=== PATIENT | male | born 1955 | race Caucasian/White ===

== ENCOUNTER 2017-01-13 13:38 | Inpatient (IN) | payer MEDICAID ==
[~2017-01-13] VITALS: Ht 177.8 cm; Wt 93.4 kg
--- NOTE | 2017-01-13 13:42 | NUR ---
[id number] from home: etoh withdrawal. last drink last night. Gowned pt placed pt on monitor. Vss.
[2017-01-13] MEDS ORDERED: IV NS 0.9% 1,000 ML ONE ×3 (14:18→22:44)
[2017-01-13] MEDS ORDERED: IV SET PRIMARY PUMP SET 1 EA INFUS.SET MC ONE ×3 (14:18→22:44)
[2017-01-13 14:19] LABS: BASOPHILS % (AUTO) 0.2 % (0.0-2.0); EOSINOPHILS % (AUTO) 0.1 % (0.0-6.0); HEMATOCRIT 39 % (39-51); HEMOGLOBIN 13.2 g/dL (13.5-17.5); LYMPHOCYTES # (AUTO) 0.4 /CMM (0.8-4.8); LYMPHOCYTES % (AUTO) 4.1 % (20.0-44.0); MEAN CORPUSCULAR HEMOGLOBIN 36 PG (26.0-33.0); MEAN CORPUSCULAR HGB CONC 34 g/dl (31.0-36.0); MEAN CORPUSCULAR VOLUME 108 fL (80-96); MONOCYTES # (AUTO) 0.5 /CMM (0.1-1.30); MONOCYTES % (AUTO) 4.9 % (2.0-12.0); NEUTROPHILS % (AUTO) 90.7 % (43.0-81.0); PLATELET COUNT (AUTO) 203 /CMM (150-450); RDW COEFFICIENT OF VARIATION 15.2 (11.5-15.0); RED BLOOD CELL COUNT(AUTO) 3.65 MIL/uL (4.5-6.0); WHITE BLOOD COUNT (AUTO) 9.9 K/uL (4.3-11.0)
[2017-01-13] MEDS ORDERED: LORAZEPAM INJ 2 MG/ML VIAL ONE ×5 (14:19→22:46)
[2017-01-13] MEDS ORDERED: IV NS 0.9% 1,000 ML BAG IV ONE (14:30)
[2017-01-13] MEDS ORDERED: LORAZEPAM INJ 2 MG/ML VIAL IV ONE ×4 (14:30→19:00)
[2017-01-13 14:33] LABS: CREATININE 1.3 mg/dL (0.6-1.3)
[2017-01-13] MEDS ORDERED: TRAZ-147 PO (14:37)
[2017-01-13] MEDS ORDERED: CARV6.252 PO (14:37)
[2017-01-13] MEDS ORDERED: CLON0.1T PO (14:37)
[2017-01-13] MEDS ORDERED: POTA-88 PO (14:37)
[2017-01-13] MEDS ORDERED: MIRT15TA7 PO (14:37)
[2017-01-13] MEDS ORDERED: FURO40TA5 PO (14:37)
[2017-01-13] MEDS ORDERED: LOSA100T15 PO (14:37)
[2017-01-13] MEDS ORDERED: ESCI10TA PO (14:37)
[2017-01-13 14:38] LABS: ALBUMIN 3.8 g/dL (3.4-5.0); BILIRUBIN,DIRECT 0.7 mg/dL (0.0-0.2); TOTAL PROTEIN, SERUM 7.8 g/dL (6.4-8.2)
[2017-01-13 15:12] LABS: BAND % (MANUAL) 3 % (0.0-5.0); EOSINOPHILS % (MANUAL) 1 % (0-4); LYMPHOCYTES % (MANUAL) 7 % (16-48); MONOCYTES % (MANUAL) 2 % (0-11.0); NEUTROPHILS % (MANUAL) 87 (42-76)
--- NOTE | 2017-01-13 15:30 | NUR ---
lac #18 iv access. blood sample collected sent to lab
[2017-01-13] MEDS ORDERED: CHLORDIAZEPOXIDE HCL 25 MG CAPSULE ONE ×2 (16:14→22:31)
[2017-01-13] MEDS ORDERED: ONDANSETRON HCL/PF 4 MG/2 ML VIAL ONE ×2 (16:14→22:46)
[2017-01-13] MEDS ORDERED: ONDANSETRON HCL/PF 4 MG/2 ML VIAL IV ONE (16:30)
[2017-01-13] MEDS ORDERED: CHLORDIAZEPOXIDE HCL 25 MG CAPSULE PO ONE (16:30)
[2017-01-13] MEDS ORDERED: METOCLOPRAMIDE HCL 10 MG/2 ML VIAL ONE (17:52)
[2017-01-13] MEDS ORDERED: FOLIC ACID 1 MG TABLET ONE ×2 (17:53→17:54)
[2017-01-13] MEDS ORDERED: THIAMINE HCL 100 MG TABLET ONE (17:53)
[2017-01-13] MEDS ORDERED: THIAMINE HCL 100 MG TABLET PO ONE (18:00)
[2017-01-13] MEDS ORDERED: FOLIC ACID 1 MG TABLET PO ONE (18:00)
[2017-01-13] MEDS ORDERED: METOCLOPRAMIDE HCL 10 MG/2 ML VIAL IV ONE (18:00)
[2017-01-13] MEDS ORDERED: hydrALAZINE HCL IV 20 MG VIAL IV ONE (19:00)
[2017-01-13] MEDS ORDERED: AMLODIPINE BESYLATE 5 MG TABLET ONE (19:00)
[2017-01-13] MEDS ORDERED: AMLODIPINE BESYLATE 5 MG TABLET PO ONE (19:00)
[2017-01-13] MEDS ORDERED: hydrALAZINE HCL IV 20 MG VIAL ONE (19:00)
--- NOTE | 2017-01-13 19:10 | NUR ---
GAVE REPORT TO ROMÁN FOR JASSON
--- NOTE | 2017-01-13 19:12 | NUR ---
CRISTEL HERNANDEZ, RAI PACHECO PASTORAL COUNSELOR
--- NOTE | 2017-01-13 19:30 | NUR ---
PT APPEARS TO BE RESTING COMFORTABLY WITH NO S/S OF PAIN OR DISTRESS.
--- NOTE | 2017-01-13 20:40 | NUR ---
CLEANED PT. DIARRHEA X1.
--- NOTE | 2017-01-13 21:02 | NUR ---
REPORT GIVEN TO ED, RN
[2017-01-13 21:30] VITALS: BP 151/87
[2017-01-13 22:01] VITALS: BP 170/103
[2017-01-13] MEDS ORDERED: POTASSIUM CL. PREMIX PERIPHER. 200 ML ONE (22:28)
[2017-01-13 22:30] VITALS: BP 154/91
[2017-01-13] MEDS ORDERED: MAG HYDROX/AL HYDROX/SIMETH 30 ML UDC PO PRN (22:30)
[2017-01-13] MEDS ORDERED: MAGNESIUM HYDROXIDE 30 ML UDC PO PRN (22:30)
[2017-01-13] MEDS ORDERED: DEXTROSE 50%-WATER 50 ML DISP.SYRIN IV PRN ×2 (22:30)
[2017-01-13] MEDS ORDERED: ACETAMINOPHEN 325 MG TABLET PO PRN (22:30)
[2017-01-13] MEDS ORDERED: ONDANSETRON HCL/PF 4 MG/2 ML VIAL IVP PRN (22:30)
[2017-01-13] MEDS ORDERED: Z GUARD REMEDY 2 OZ OINT TP PRN (22:30)
[2017-01-13] MEDS ORDERED: HYDROCODONE/APAP 5/325MG 1 EACH TABLET PO PRN (22:30)
[2017-01-13] MEDS ORDERED: INSULIN REGULAR, HUMAN 100 UNIT/ML 3 ML VIAL SQ PRN (22:30)
[2017-01-13] MEDS ORDERED: hydrALAZINE HCL IV 20 MG VIAL IV PRN (22:30)
[2017-01-13] MEDS: POTASSIUM CL. PREMIX PERIPHER. 50 ML IV SCH ×2 (22:33→23:27)
[2017-01-13] MEDS: CHLORDIAZEPOXIDE HCL 25 MG CAPSULE PO SCH (22:35)
[2017-01-13] MEDS: LORAZEPAM INJ 2 MG/ML VIAL IV PRN (22:50)
[2017-01-13] MEDS: IV NS 0.9% 1,000 ML IV PRN (22:52)
[2017-01-13 23:00] VITALS: BP 143/95
[2017-01-13] MEDS ORDERED: ZOLPIDEM TARTRATE 5 MG TABLET ONE (23:21)
[2017-01-13] MEDS: ZOLPIDEM TARTRATE 5 MG TABLET PO PRN (23:26)
[2017-01-13 23:34] LABS: PHOSPHORUS 1.7 mg/dL (2.5-4.9)
[2017-01-13] MEDS ORDERED: ENOXAPARIN SODIUM 40 MG/0.4 ML DISP.SYRIN SQ ONE (23:52)
[2017-01-13] MEDS: ENOXAPARIN SODIUM 40 MG/0.4 ML DISP.SYRIN SQ SCH (23:57)
[2017-01-14] VITALS (23 sets, daily range): BP systolic 120–163; BP diastolic 80–109
[2017-01-14] MEDS: BLOOD SUGAR DIAGNOSTIC 1 EACH STRIP IN SCH ×5 (00:07→11:12)
[2017-01-14] MEDS ORDERED: Magnesium 1GM/D5W 100ML PREMIX 400 ML IV ONE (00:09)
[2017-01-14] MEDS ORDERED: IV SET PRIMARY PUMP SET 1 EA INFUS.SET MC ONE (00:09)
[2017-01-14] MEDS: Magnesium 1GM/D5W 100ML PREMIX 100 ML IV SCH ×4 (00:13→03:01)
[2017-01-14] MEDS: POTASSIUM CL. PREMIX PERIPHER. 50 ML IV SCH ×6 (00:33→09:55)
[2017-01-14] MEDS ORDERED: MIRTAZAPINE 15 MG TABLET PO PRN (01:00)
[2017-01-14] MEDS ORDERED: LORAZEPAM INJ 2 MG/ML VIAL ONE (01:01)
[2017-01-14] MEDS: LORAZEPAM INJ 2 MG/ML VIAL IV PRN ×5 (01:05→21:11)
[2017-01-14] MEDS ORDERED: FUROSEMIDE 40 MG/4 ML VIAL IV SCH (03:00)
[2017-01-14] MEDS ORDERED: FUROSEMIDE 40 MG/4 ML VIAL IV ONE (03:00)
[2017-01-14] MEDS ORDERED: FUROSEMIDE 40 MG/4 ML VIAL ONE (03:11)
[2017-01-14 05:12] LABS: BASOPHILS % (AUTO) 0.2 % (0.0-2.0); EOSINOPHILS % (AUTO) 0.1 % (0.0-6.0); HEMATOCRIT 33 % (39-51); HEMOGLOBIN 11.7 g/dL (13.5-17.5); LYMPHOCYTES # (AUTO) 0.7 /CMM (0.8-4.8); LYMPHOCYTES % (AUTO) 12.8 % (20.0-44.0); MEAN CORPUSCULAR HEMOGLOBIN 37 PG (26.0-33.0); MEAN CORPUSCULAR HGB CONC 35 g/dl (31.0-36.0); MEAN CORPUSCULAR VOLUME 107 fL (80-96); MONOCYTES # (AUTO) 0.2 /CMM (0.1-1.30); MONOCYTES % (AUTO) 4.2 % (2.0-12.0); NEUTROPHILS # (AUTO) 4.3 /CMM (1.8-8.9); NEUTROPHILS % (AUTO) 82.7 % (43.0-81.0); PLATELET COUNT (AUTO) 109 /CMM (150-450); RDW COEFFICIENT OF VARIATION 15.8 (11.5-15.0); RED BLOOD CELL COUNT(AUTO) 3.13 MIL/uL (4.5-6.0); WHITE BLOOD COUNT (AUTO) 5.2 K/uL (4.3-11.0)
[2017-01-14 05:44] LABS: CALCIUM, SERUM 7.3 mg/dL (8.5-10.1); CREATININE 0.8 mg/dL (0.6-1.3); MAGNESIUM 2.4 mg/dL (1.8-2.4); PHOSPHORUS 1.7 mg/dL (2.5-4.9)
[2017-01-14 05:47] LABS: POTASSIUM 2.8 mmol/L (3.5-5.1)
[2017-01-14 06:11] LABS: BAND % (MANUAL) 4 % (0.0-5.0); EOSINOPHILS % (MANUAL) 1 % (0-4); LYMPHOCYTES % (MANUAL) 17 % (16-48); MONOCYTES % (MANUAL) 5 % (0-11.0); NEUTROPHILS % (MANUAL) 73 (42-76)
[2017-01-14] MEDS ORDERED: POTASSIUM CL. PREMIX PERIPHER. 50 ML ONE (06:14)
--- NOTE | 2017-01-14 07:05 | NUR ---
COMPUTER FORWARDING SYSTEM MARKUP CLERK- RECEIVED PT A/O X3. ON 2L NC, RESPIRATIONS EVEN AND UNLABORED, NO SOB OR DISTRESS PRESENT. BEDSIDE MONITOR REVEALS SINUS TACHYCARDIA, HR= 117. TWO IVS PRESENT: 1) LEFT HAND 20G RUNNING NS @ 75 ML/HR AND 2) LAC 18G HL. PT DENIES PAIN OR DISCOMFORT. PT CONTINENT OF URINE & STOOL, URINAL AT BEDSIDE. INFORMED PT STOOL IS NEEDED FOR SAMPLE. SAFETY MEASURES TAKEN: BED LOCKED AND IN LOW POSITION, SIDE RAILS UP X2, BED ALARM ON AND CALL LIGHT WITHIN REACH, WILL CONTINUE TO MONITOR.
--- NOTE | 2017-01-14 07:17 | NUR ---
PHLEBOTOMIST MEDICAL LAB ASSISTANT PT WAS ADMITTED FROM ER WITH DIAGNOSIS ALCOHOL WITHDRAWAL. PT IS AWAKE, ALERT, ORIENTED X 3. MOVES ALL EXTREMITIES, LEGS ARE WEAK. TACHYCARDIC, HYPERTENSIVE, ANXIOUS. AFEBRILE. ABNORMAL LAB RESULTS: K-3, MAG-1. PT WAS GIVEN KCL 40 MEQ IV, AND MAGNESIUM SULFATE 4 G. IV. SLEPT WELL AFTER TAKING AMBIEN 5 MG PO. ATIVAN 2 MG IV ALSO WAS GIVEN. IN A.M. K LEVEL IS STILL LOW-2.8 THERE IS ORDER TO GIVE ANOTHER KCL 40 MEQ IV. VOIDS SUFFICIENT AMT. OF CLEAR DEX URINE. IV SITES ARE OK. MEDICATED ORDERED. REPORT GIVEN TO ESPERANZA DAY SHIFT RN.
[2017-01-14] MEDS: PANTOPRAZOLE 40 MG TABLET.DR PO SCH ×2 (07:30→09:11)
[2017-01-14] MEDS: CLONIDINE HCL 0.1 MG TABLET PO SCH ×2 (09:08→17:16)
[2017-01-14] MEDS: CARVEDILOL 6.25 MG TABLET PO SCH ×2 (09:08→17:16)
[2017-01-14] MEDS: CHLORDIAZEPOXIDE HCL 25 MG CAPSULE PO SCH ×2 (09:55→17:16)
[2017-01-14] MEDS: FOLIC ACID 1 MG TABLET PO SCH (09:56)
[2017-01-14] MEDS: ESCITALOPRAM OXALATE (10 MG) 10 MG TABLET PO SCH (10:19)
[2017-01-14] MEDS: THIAMINE HCL 100 MG TABLET PO SCH (10:20)
[2017-01-14] MEDS: IV NS 0.9% 1,000 ML IV PRN (11:09)
[2017-01-14 12:18] LABS: CALCIUM, SERUM 7.2 mg/dL (8.5-10.1); POTASSIUM 3.3 mmol/L (3.5-5.1)
--- NOTE | 2017-01-14 12:30 | NUR ---
PAINTLESS DENT REPAIR TECHNICIANAisha LOVING, CHEESE MAKER AT BEDSIDE. UPDATED ON PT'S CONDITION. OBTAINED ORDERS FOR THE FOLLOWIN) CHANGE DIET TO FULL LIQUID SINCE PT C/O MILD NAUSEA AND NOT WANTING TO EAT SOLID FOODS AT THIS TIME, 2) OK TO RESUME PT ON COZAAR 100 MG DAILY, 3) DVT PUMPS OK FOR PT TO WEAR AT NIGHTTIME ONLY, 4) WILL REPLACE POTASSIUM & PHOS LEVELS. ORDERS PLACED. WILL CONTINUE TO MONITOR.
[2017-01-14] MEDS: LOSARTAN POTASSIUM 50 MG TABLET PO SCH (13:20)
[2017-01-14] MEDS: K PHOS NEUTRAL 250 MG TABLET PO SCH ×2 (13:20→21:11)
[2017-01-14] MEDS ORDERED: POTASSIUM CHLORIDE 20 MEQ POWDER PACKET PO ONE (13:30)
--- NOTE | 2017-01-14 17:30 | NUR ---
MOLD PREPARER- PT TRANSFERRED TO TELE ROOM 323-1. REPORT GIVEN TO GUSTABO SHANKS. ALL BELONGINGS SENT WITH PT. RN & PT AWARE.
--- NOTE | 2017-01-14 17:35 | NUR ---
TUB CHUCKERBLACK TOPPER FROM ICU NOTES RECEIVED PT FROM ICU.PT IS ALERT AND ORIENTED X4.VERBALLY RESPONSIVE.DENIES ANY PAIN OR DISTRESS.RESPIRATIONS NON LABORED IN ROOM AIR.WITH (2)IV H/L INTACT TO LEFT HAND AND LEFT FOREARM-WITH ONGOING IVF OF NS AT 75 ML/HR INFUSING WELL ON THE LT FOREARM.DENIES PAIN BUT WANTS ATIVAN IV PRN FOR HIS TREMORS AND ANXIETY.ATIVAN 1 MG IV GIVEN WITH EFFECTIVE RESULT.WITH BRUISES PRESENT ON RT SHOULDER,LT THIGH AND LT ANKLE.CALL LIGHT PLACED WITHIN REACH.
--- NOTE | 2017-01-14 19:56 | NUR ---
MS/RN OPENING NOTES PATIENT IN BED, AWAKE. NO S/S OF SOB OR DISTRESS OBSERVEDD. ON 2L OXYGEN VIA NC.CALL LIGHTS WITHIN REACH. FLUIDS AT BEDSIDE. VERBALIZED NEEDS AND REQUESTING FOR SOME ATIVAN .B/P CHECK 123/87. WILL CONTINUE TO PROVIDE CARE. AND INFORMED TO USE CALL LIGHT AND ASK FOR HELP FOR ASSISTANCE.
[2017-01-14] MEDS: ATORVASTATIN 40 MG TABLET PO SCH (21:11)
[2017-01-14] MEDS: ENOXAPARIN SODIUM 40 MG/0.4 ML DISP.SYRIN SQ SCH (23:10)
--- NOTE | 2017-01-14 23:16 | NUR ---
Tele/rn notes md contacted to inform latest platelet level of 109(L) and ordered to continue order for lovenox 40mg sq and monitor for any bleeding.
[2017-01-15] VITALS: BP 129/80
[2017-01-15] MEDS: LORAZEPAM INJ 2 MG/ML VIAL IV PRN ×8 (00:22→22:53)
[2017-01-15] MEDS ORDERED: IV SET PRIMARY PUMP SET 1 EA INFUS.SET MC ONE (02:00)
[2017-01-15] MEDS: IV NS 0.9% 1,000 ML IV PRN ×2 (02:09→18:00)
--- NOTE | 2017-01-15 02:29 | NUR ---
tele/rn notes md was informed regarding diarrhea since admission no new order but iv fluids to continue and monitoring for any electrolyte imbalance.
[2017-01-15 04:00] VITALS: BP_SYST 121; BP_SYST 129; BP_DIAS 75; BP_DIAS 80
--- NOTE | 2017-01-15 06:36 | NUR ---
tele/rn notes patient in bed, awake, alertx3. able to verbalize needs. noted inability to relax and requesting for prn ativan, provided education for deep breathing exercise to calm dowm iv on left hand removed due to leaking. monitoring for any bleeding on site. will endorse to am rn regaring continuity of care. md made aware regarding diarrhea and no order except iv hydration abd monitoring for any s/s of complication.
[2017-01-15 07:27] LABS: BASOPHILS % (AUTO) 0.4 % (0.0-2.0); EOSINOPHILS # (AUTO) 0.1 /CMM (0.0-0.7); EOSINOPHILS % (AUTO) 1.5 % (0.0-6.0); HEMATOCRIT 31 % (39-51); HEMOGLOBIN 10.9 g/dL (13.5-17.5); LYMPHOCYTES # (AUTO) 0.8 /CMM (0.8-4.8); LYMPHOCYTES % (AUTO) 18.9 % (20.0-44.0); MEAN CORPUSCULAR HEMOGLOBIN 38 PG (26.0-33.0); MEAN CORPUSCULAR HGB CONC 35 g/dl (31.0-36.0); MEAN CORPUSCULAR VOLUME 109 fL (80-96); MONOCYTES # (AUTO) 0.2 /CMM (0.1-1.30); MONOCYTES % (AUTO) 5.9 % (2.0-12.0); NEUTROPHILS % (AUTO) 73.3 % (43.0-81.0); PLATELET COUNT (AUTO) 78 /CMM (150-450); RDW COEFFICIENT OF VARIATION 15.4 (11.5-15.0); RED BLOOD CELL COUNT(AUTO) 2.86 MIL/uL (4.5-6.0); WHITE BLOOD COUNT (AUTO) 4.1 K/uL (4.3-11.0)
--- NOTE | 2017-01-15 07:36 | NUR ---
TELE/RN NOTES RECEIVED PATIENT RESTING IN BED, SLEEPING COMFORTABLY, AROUSED BY VERBAL STIMULI. NO S/S OF DISTRESS/DISCOMFORT NOTED. PER TELE MONITOR SINUS TACH 101. IV TO LEFT FA INFUSING NS AT 75CC/HR. SAFETY MEASURES RENDERED, CALL LIGHT PLACED WITHIN REACH. WILL CONTINUE TO MONITOR
[2017-01-15 07:54] LABS: CALCIUM, SERUM 7.3 mg/dL (8.5-10.1); CREATININE 0.9 mg/dL (0.6-1.3); POTASSIUM 2.9 mmol/L (3.5-5.1)
[2017-01-15 08:00] VITALS: BP 125/70
[2017-01-15 08:28] LABS: EOSINOPHILS % (MANUAL) 1 % (0-4); LYMPHOCYTES % (MANUAL) 15 % (16-48); MONOCYTES % (MANUAL) 7 % (0-11.0); NEUTROPHILS % (MANUAL) 77 (42-76)
[2017-01-15] MEDS ORDERED: POTASSIUM CHLORIDE 20 MEQ POWDER PACKET PO ONE (10:00)
[2017-01-15] MEDS: CHLORDIAZEPOXIDE HCL 25 MG CAPSULE PO SCH ×2 (10:02→16:12)
[2017-01-15] MEDS: FOLIC ACID 1 MG TABLET PO SCH (10:02)
[2017-01-15] MEDS: CLONIDINE HCL 0.1 MG TABLET PO SCH ×2 (10:02→16:12)
[2017-01-15] MEDS: CARVEDILOL 6.25 MG TABLET PO SCH ×2 (10:03→16:12)
[2017-01-15] MEDS: THIAMINE HCL 100 MG TABLET PO SCH (10:03)
[2017-01-15] MEDS: ESCITALOPRAM OXALATE (10 MG) 10 MG TABLET PO SCH (10:03)
[2017-01-15] MEDS: LOSARTAN POTASSIUM 50 MG TABLET PO SCH (10:03)
[2017-01-15] MEDS: PANTOPRAZOLE 40 MG TABLET.DR PO SCH (10:05)
--- NOTE | 2017-01-15 11:50 | NUR ---
MS/RN NOTES ALCOHOL WITHDRAW SYMPTOMS NOTED, PATIENT HAS HAND UNCONTROLLED HAND TREMORS, VERBLAIZES FEEING ANXIOUS AND AGITATED. ADMINISTERED ATIVAN 2 MG IV NEEDED FOR NOTED SYMPTOMS.
--- NOTE | 2017-01-15 12:13 | NUR ---
MS/RN JUAN PATIENT HAS BEEN C/O SEVERE DIARRHEA, MORNING SHIFT X1 DIARRHEA NOTED. CALLED DR SOLANO FOR ORDERS.
--- NOTE | 2017-01-15 14:55 | NUR ---
MS/RN NOTES PATIENT RESTING IN BED, AT BEDSIDE. NO SIGNIFICANT CHANGES NOTED. WITHDRAWAL SYMPTOMS MANAGED WITH ATIVAN, ALCOHOL INDUCED DIARRHEA NOTED. PT EVAL FOR BLE WEAKNESS, POSSIBLE DISCHARGE FOR AM.
[2017-01-15 16:00] VITALS: BP 127/93
[2017-01-15 16:12] VITALS: BP 127/93
--- NOTE | 2017-01-15 18:49 | NUR ---
MS/RN NOTES PATIENT RESTING IN BED COMFORTABLY, STABLE, NO SIGNIFICANT CHANGES NOTED. ALL DUE MEDICATIONS GIVEN, ALL NEEDS MET AND ATTENDED. PATIENT KEPT CLEAN AND COMFORTABLE. ALCOHOL WITHDRAWALS MANAGED WITH ATIVAN 2 MG IV PUSH EVERY 2 HOURS. SAFETY MEASURES RENDERED, CALL LIGHT WITHIN REACH. WILL ENDORSE CARE TO RISK ANALYST FOR JASSON.
[2017-01-15 20:00] VITALS: BP 131/89
[2017-01-15] MEDS: ATORVASTATIN 40 MG TABLET PO SCH (21:13)
--- NOTE | 2017-01-15 21:44 | NUR ---
MSN NOTES RECEIVED PT IN ROOM. AWAKE. COOPERATIVE WITH STAFF. RESPIRATION EVEN AND UNLABORED. NO SOB. NO ACUTE DISTRESS NOTED. NO COMPLAIN OF PAIN/DISCOMFORT AT THIS TIME. ALL NEEDS ATTENDED AND ANTICIPATED. BED IN LOW AND LOCKED POSITION. SIDERAILS UP X2. CALL LIGHT WITHIN REACH. WILL CONTINUE TO MONITOR FOR SAFETY.
[2017-01-15] MEDS: ZOLPIDEM TARTRATE 5 MG TABLET PO PRN (22:47)
[2017-01-15] MEDS: ENOXAPARIN SODIUM 40 MG/0.4 ML DISP.SYRIN SQ SCH (23:53)
[2017-01-16] MEDS: LORAZEPAM INJ 2 MG/ML VIAL IV PRN ×2 (04:23→08:45)
--- NOTE | 2017-01-16 06:21 | NUR ---
MSN NOTES PT IN ROOM. AWAKE. RESPIRATION EVEN AND UNLABORED. NO SOB. NO ACUTE DISTRESS NOTED. NO COMPLAIN OF PAIN/DISCOMFORT AT THIS TIME. ALL NEEDS ATTENDED AND ANTICIPATED. BED IN LOW AND LOCKED POSITION. SIDERAILS UP X2. CALL LIGHT WITHIN REACH. WILL ENDORSE TO NEXT SHIFT NURSE FOR CONTINUITY OF CARE.
[2017-01-16 07:33] LABS: CALCIUM, SERUM 7.3 mg/dL (8.5-10.1); CREATININE 0.9 mg/dL (0.6-1.3); POTASSIUM 3.1 mmol/L (3.5-5.1)
[2017-01-16 08:00] VITALS: BP 123/107
--- NOTE | 2017-01-16 08:00 | NUR ---
PT RESTING IN ROOM, FEMALE VISTOR PRESENT. IV DRESSING AND SITE CLEANED...PT IN NO DISTRESS AT THIS TIME...AM CARE IN PROCESS
[2017-01-16] MEDS: ESCITALOPRAM OXALATE (10 MG) 10 MG TABLET PO SCH (08:45)
[2017-01-16] MEDS: LOSARTAN POTASSIUM 50 MG TABLET PO SCH (08:46)
[2017-01-16 08:47] VITALS: BP 146/107
[2017-01-16] MEDS: CLONIDINE HCL 0.1 MG TABLET PO SCH (08:47)
[2017-01-16] MEDS: PANTOPRAZOLE 40 MG TABLET.DR PO SCH (08:47)
[2017-01-16] MEDS: FOLIC ACID 1 MG TABLET PO SCH (08:47)
[2017-01-16] MEDS: CARVEDILOL 6.25 MG TABLET PO SCH (08:47)
[2017-01-16] MEDS: THIAMINE HCL 100 MG TABLET PO SCH (08:48)
[2017-01-16] MEDS: CHLORDIAZEPOXIDE HCL 25 MG CAPSULE PO SCH (08:48)
[2017-01-16] MEDS ORDERED: POTASSIUM CHLORIDE 20 MEQ POWDER PACKET PO ONE (11:00)
--- NOTE | 2017-01-16 11:30 | NUR ---
PENDING D/C TO HOME...PT APPEARS IN STABLE CONDITION
--- NOTE | 2017-01-16 14:03 | NUR ---
IV D/C'D...NO HEMATOMA NOTED...D/C'D PER W/C WITH FRIEND TO HOME IN STABLE CONDITION .D/C INSTRUCTIONS RCVD AND UNDERSTOOD...NO RX GIVEN...PT ENCOURAGED TO CALL MD OFFICE OR HOSPITAL WITH QUESTIONS OR GO TO ER IN CASE OF EMERGENCY
== END 2017-01-16 14:05 | disposition home or self-care (01) | DRG 194 ==
LOC: ER 13:40 → ICU 20:25 → TELE 01-14 17:25 → MED 01-15 09:58
PROVIDERS: ADMIT Nurse Practitioner Acute Care; ATTEND Nurse Practitioner Acute Care
DX: I11.0 Hypertensive heart disease with heart failure (principal); E86.0 Dehydration; E46 Unspecified protein-calorie malnutrition; D69.59 Other secondary thrombocytopenia; E83.42 Hypomagnesemia; E83.39 Other disorders of phosphorus metabolism; D52.9 Folate deficiency anemia, unspecified; F10.239 Alcohol dependence with withdrawal, unspecified; I50.23 Acute on chronic systolic (congestive) heart failure; F32.9 Major depressive disorder, single episode, unspecified; E87.6 Hypokalemia; F41.9 Anxiety disorder, unspecified; E78.5 Hyperlipidemia, unspecified; R00.0 Tachycardia, unspecified; Z95.0 Presence of cardiac pacemaker; R74.0 Nonspecific elevation of levels of transaminase and lactic acid dehydrogenase [LDH]; Z68.29 Body mass index [BMI] 29.0-29.9, adult; D63.8 Anemia in other chronic diseases classified elsewhere
CPT/HCPCS: 36415; 71010-TC; 80048-TC; 80061-TC; 80076-TC; 82746; 82962-TC; 83690-TC; 83735-TC; 84100-TC; 84484-TC; 85025-TC; 87081-TC; 93307-TC; A4606; G0480; J0360; J1650; J1815; J1940; J2060; J2405; J2765; J3475; J3480; J7030; Z7610

== ENCOUNTER 2017-01-31 11:33 | Inpatient (IN) | payer MEDICAID ==
[~2017-01-31] VITALS: Ht 177.8 cm; Wt 95.7 kg
[~2017-01-31 11:33] MED LIST: CARV6.252 PO; CLON0.1T PO; ESCI10TA PO; FURO40TA5 PO; LOSA100T15 PO; MIRT15TA7 PO; POTA-88 PO; TRAZ-147 PO
[2017-01-31] MEDS ORDERED: IV NS 0.9% 1,000 ML BAG IV ONE ×3 (12:00→14:00)
[2017-01-31] MEDS ORDERED: IV SET PRIMARY 1 EA INFUS.SET MC ONE ×3 (12:02→13:47)
[2017-01-31] MEDS ORDERED: IV NS 0.9% 1,000 ML ONE ×3 (12:02→13:47)
[2017-01-31 12:22] LABS: HEMATOCRIT 39 % (39-51); HEMOGLOBIN 13.8 g/dL (13.5-17.5); LYMPHOCYTES # (AUTO) 0.2 /CMM (0.8-4.8); LYMPHOCYTES % (AUTO) 2.2 % (20.0-44.0); MEAN CORPUSCULAR HEMOGLOBIN 38 PG (26.0-33.0); MEAN CORPUSCULAR HGB CONC 35 g/dl (31.0-36.0); MEAN CORPUSCULAR VOLUME 107 fL (80-96); MONOCYTES # (AUTO) 0.3 /CMM (0.1-1.30); MONOCYTES % (AUTO) 3.7 % (2.0-12.0); NEUTROPHILS # (AUTO) 8.5 /CMM (1.8-8.9); NEUTROPHILS % (AUTO) 94.1 % (43.0-81.0); PLATELET COUNT (AUTO) 142 /CMM (150-450); RDW COEFFICIENT OF VARIATION 14.2 (11.5-15.0); RED BLOOD CELL COUNT(AUTO) 3.67 MIL/uL (4.5-6.0)
[2017-01-31 12:44] LABS: BAND % (MANUAL) 5 % (0.0-5.0); LYMPHOCYTES % (MANUAL) 3 % (16-48); MONOCYTES % (MANUAL) 4 % (0-11.0); NEUTROPHILS % (MANUAL) 88 (42-76)
[2017-01-31] MEDS ORDERED: CARV3.122 PO (12:44)
[2017-01-31 12:57] LABS: ALANINE AMINOTRANSFERASE 126 U/L (12-78); ALBUMIN 3.3 g/dL (3.4-5.0); ALKALINE PHOSPHATASE 194 U/L (46-116); ASPARTATE AMINOTRANSFERASE 261 U/L (15-37); BILIRUBIN,DIRECT 4.7 mg/dL (0.0-0.2); BILIRUBIN,TOTAL 6.4 mg/dL (0.2-1.0); CALCIUM, SERUM 7.8 mg/dL (8.5-10.1); CARBON DIOXIDE 24 mmol/L (21-32); CHLORIDE 82 mmol/L (98-107); CREATININE 5.1 mg/dL (0.6-1.3); GLUCOSE 193 mg/dL (74-106); SODIUM SERUM 125 mmol/L (136-145); TOTAL PROTEIN, SERUM 7.5 g/dL (6.4-8.2); UREA NITROGEN, BLOOD 17 mg/dL (7-18)
[2017-01-31 12:59] LABS: ACETAMINOPHEN 0 ug/ml (10-30); ALCOHOL, BLOOD < 3 mg/dL (0-0)
[2017-01-31 13:00] LABS: POTASSIUM 2.7 mmol/L (3.5-5.1)
[2017-01-31] MEDS ORDERED: POTASSIUM CHLORIDE 20 MEQ TAB.PRT.SR PO ONE ×3 (13:30→20:15)
[2017-01-31] MEDS ORDERED: LORAZEPAM INJ 2 MG/ML VIAL IV ONE (13:30)
[2017-01-31] MEDS ORDERED: LORAZEPAM INJ 2 MG/ML VIAL ONE (13:48)
[2017-01-31 14:10] VITALS: BP 130/78
[2017-01-31] MEDS ORDERED: ACETAMINOPHEN 325 MG TABLET PO PRN (14:30)
[2017-01-31] MEDS ORDERED: IV D5/ 0.9% NACL 1,000 ML IV PRN (14:30)
[2017-01-31] MEDS ORDERED: Z GUARD REMEDY 2 OZ OINT TP PRN (14:30)
[2017-01-31] MEDS ORDERED: ONDANSETRON HCL/PF 4 MG/2 ML VIAL IVP PRN (14:30)
[2017-01-31] MEDS: CARVEDILOL 3.125 MG TABLET PO SCH (14:36)
[2017-01-31] MEDS ORDERED: IV SET PRIMARY PUMP SET 1 EA INFUS.SET MC ONE (15:47)
[2017-01-31] MEDS ORDERED: SECONDARY IV SET 1 EA INFUS.SET MC ONE (15:48)
[2017-01-31 16:00] VITALS: BP 128/71
[2017-01-31] MEDS: Thiamine 100 MG in IV D5W 50 ML IV SCH (16:09)
[2017-01-31] MEDS: CLONIDINE HCL 0.1 MG TABLET PO SCH (16:36)
[2017-01-31] MEDS: Folic acid 1 MG in IV D5W 50 ML IV SCH (16:36)
[2017-01-31] MEDS: LORAZEPAM INJ 2 MG/ML VIAL IV PRN ×2 (17:46→22:14)
[2017-01-31 18:14] LABS: BASOPHILS % (AUTO) 0.2 % (0.0-2.0); HEMATOCRIT 31 % (39-51); HEMOGLOBIN 10.8 g/dL (13.5-17.5); LYMPHOCYTES # (AUTO) 0.3 /CMM (0.8-4.8); LYMPHOCYTES % (AUTO) 5.8 % (20.0-44.0); MEAN CORPUSCULAR HEMOGLOBIN 37 PG (26.0-33.0); MEAN CORPUSCULAR HGB CONC 35 g/dl (31.0-36.0); MEAN CORPUSCULAR VOLUME 106 fL (80-96); MONOCYTES # (AUTO) 0.3 /CMM (0.1-1.30); MONOCYTES % (AUTO) 5.7 % (2.0-12.0); NEUTROPHILS # (AUTO) 3.9 /CMM (1.8-8.9); NEUTROPHILS % (AUTO) 88.3 % (43.0-81.0); PLATELET COUNT (AUTO) 87 /CMM (150-450); RDW COEFFICIENT OF VARIATION 14.4 (11.5-15.0); RED BLOOD CELL COUNT(AUTO) 2.89 MIL/uL (4.5-6.0); WHITE BLOOD COUNT (AUTO) 4.5 K/uL (4.3-11.0)
[2017-01-31 18:29] LABS: ALBUMIN 2.5 g/dL (3.4-5.0); BILIRUBIN,TOTAL 5.2 mg/dL (0.2-1.0); CALCIUM, SERUM 6.7 mg/dL (8.5-10.1); TOTAL PROTEIN, SERUM 5.8 g/dL (6.4-8.2)
[2017-01-31 19:07] LABS: BAND % (MANUAL) 23 % (0.0-5.0); LYMPHOCYTES % (MANUAL) 12 % (16-48); MONOCYTES % (MANUAL) 6 % (0-11.0); NEUTROPHILS % (MANUAL) 59 (42-76)
[2017-01-31 19:19] LABS: POTASSIUM 2.5 mmol/L (3.5-5.1)
[2017-01-31 20:00] VITALS: BP 131/85
[2017-01-31] MEDS: Potassium Chloride 20 MEQ in IV D5/ 0.9% NACL 1,000 ML IV PRN (21:25)
[2017-01-31] MEDS: MIRTAZAPINE 15 MG TABLET PO SCH (21:25)
[2017-02-01] VITALS: BP 156/86
[2017-02-01] MEDS: LORAZEPAM INJ 2 MG/ML VIAL IV PRN ×5 (03:16→22:57)
[2017-02-01 04:00] VITALS: BP 124/85
[2017-02-01 04:24] VITALS: BP 124/83
[2017-02-01 06:52] LABS: INR 1.27 (0.87-1.13); PROTHROMBIN TIME 13.8 SECS (9.5-12.7)
[2017-02-01 06:55] LABS: EOSINOPHILS % (AUTO) 0.1 % (0.0-6.0); HEMATOCRIT 29 % (39-51); HEMOGLOBIN 10.4 g/dL (13.5-17.5); LYMPHOCYTES # (AUTO) 0.4 /CMM (0.8-4.8); LYMPHOCYTES % (AUTO) 11.3 % (20.0-44.0); MEAN CORPUSCULAR HEMOGLOBIN 39 PG (26.0-33.0); MEAN CORPUSCULAR HGB CONC 36 g/dl (31.0-36.0); MEAN CORPUSCULAR VOLUME 107 fL (80-96); MONOCYTES # (AUTO) 0.3 /CMM (0.1-1.30); NEUTROPHILS # (AUTO) 2.7 /CMM (1.8-8.9); NEUTROPHILS % (AUTO) 80.6 % (43.0-81.0); PLATELET COUNT (AUTO) 68 /CMM (150-450); RDW COEFFICIENT OF VARIATION 14.4 (11.5-15.0); WHITE BLOOD COUNT (AUTO) 3.4 K/uL (4.3-11.0)
[2017-02-01 07:08] LABS: ALBUMIN 2.5 g/dL (3.4-5.0); BILIRUBIN,TOTAL 5.1 mg/dL (0.2-1.0); CALCIUM, SERUM 6.9 mg/dL (8.5-10.1); CREATININE 5.5 mg/dL (0.6-1.3); PHOSPHORUS 1.1 mg/dL (2.5-4.9)
[2017-02-01 07:10] LABS: THYROID STIMULATING HORMONE 0.973 uIU/mL (0.358-3.74)
[2017-02-01 07:17] LABS: POTASSIUM 2.8 mmol/L (3.5-5.1)
[2017-02-01 07:18] LABS: MAGNESIUM 0.9 mg/dL (1.8-2.4)
[2017-02-01] MEDS: PANTOPRAZOLE 40 MG TABLET.DR PO SCH (07:30)
[2017-02-01 08:00] VITALS: BP 133/86
[2017-02-01] MEDS: CLONIDINE HCL 0.1 MG TABLET PO SCH ×2 (09:00→17:18)
[2017-02-01] MEDS: ESCITALOPRAM OXALATE (10 MG) 10 MG TABLET PO SCH (09:00)
[2017-02-01] MEDS: CARVEDILOL 3.125 MG TABLET PO SCH ×2 (09:00→17:18)
[2017-02-01] MEDS ORDERED: IV SET PRIMARY PUMP SET 1 EA INFUS.SET MC ONE ×3 (09:01→17:12)
[2017-02-01] MEDS ORDERED: SECONDARY IV SET 1 EA INFUS.SET MC ONE ×2 (09:01→20:20)
[2017-02-01] MEDS: Magnesium 1GM/D5W 100ML PREMIX 100 ML IV SCH ×4 (09:09→21:33)
[2017-02-01] MEDS: POTASSIUM CL. PREMIX PERIPHER. 50 ML IV SCH ×4 (09:09→12:56)
[2017-02-01 09:20] LABS: BAND % (MANUAL) 23 % (0.0-5.0); BASOPHILS % (MANUAL) 0 % (0.0-2.0); EOSINOPHILS % (MANUAL) 0 % (0-4); LYMPHOCYTES % (MANUAL) 16 % (16-48); MONOCYTES % (MANUAL) 3 % (0-11.0); NEUTROPHILS % (MANUAL) 58 (42-76)
[2017-02-01] MEDS: POTASSIUM PHOSPHATE MM 7.5 MMOL in IV D5W 100 ML IV SCH ×3 (10:02→20:49)
[2017-02-01] MEDS: Potassium Chloride 20 MEQ in IV D5/ 0.9% NACL 1,000 ML IV PRN (12:56)
[2017-02-01] MEDS ORDERED: Calcium Gluconate 1GM/10ML 4.65 MEQ in IV D5W 50 ML IV ONE (13:00)
[2017-02-01 15:50] LABS: CALCIUM, SERUM 7.5 mg/dL (8.5-10.1); CREATININE 5.4 mg/dL (0.6-1.3); MAGNESIUM 1.4 mg/dL (1.8-2.4); POTASSIUM 3.8 mmol/L (3.5-5.1)
[2017-02-01] MEDS: Folic acid 1 MG in IV D5W 50 ML IV SCH (15:55)
[2017-02-01] MEDS: Thiamine 100 MG in IV D5W 50 ML IV SCH (15:55)
[2017-02-01] MEDS ORDERED: LORAZEPAM INJ 2 MG/ML VIAL IVP ONE (17:30)
[2017-02-01 17:43] LABS: CALCIUM, SERUM 7.6 mg/dL (8.5-10.1); CREATININE 5.4 mg/dL (0.6-1.3); POTASSIUM 3.4 mmol/L (3.5-5.1)
[2017-02-01] MEDS ORDERED: MORPHINE SULFATE INJ 4 MG/ML DISP.SYRIN IV ONE (18:13)
[2017-02-01] MEDS ORDERED: BUMETANIDE INJ 0.25 MG/ML VIAL IV STA (18:13)
[2017-02-01] MEDS ORDERED: POTASSIUM CHLORIDE 20 MEQ TAB.PRT.SR PO ONE (18:30)
[2017-02-01] MEDS ORDERED: BUMETANIDE INJ 6 MG in IV NS 0.9% 36 ML IV ONE (18:30)
[2017-02-01 19:46] LABS: MAGNESIUM 1.2 mg/dL (1.8-2.4); PHOSPHORUS 0.7 mg/dL (2.5-4.9)
[2017-02-01 21:00] VITALS: BP 148/96
[2017-02-01] MEDS: MIRTAZAPINE 15 MG TABLET PO SCH (21:33)
[2017-02-01] MEDS ORDERED: Potassium Phosphate meq 11 MEQ in IV D5W 100 ML IV SCH (23:00)
[2017-02-02] VITALS (7 sets, daily range): BP systolic 100–134; BP diastolic 56–97
[2017-02-02] MEDS: POTASSIUM PHOSPHATE MM 7.5 MMOL in IV D5W 100 ML IV SCH (00:22)
[2017-02-02] MEDS: NITROGLYCERIN 30 GM TUBE TP SCH ×4 (00:23→17:13)
[2017-02-02] MEDS: LORAZEPAM INJ 2 MG/ML VIAL IV PRN (03:18)
[2017-02-02] MEDS: CLONIDINE HCL 0.1 MG TABLET PO SCH ×2 (08:39→17:00)
[2017-02-02] MEDS: ESCITALOPRAM OXALATE (10 MG) 10 MG TABLET PO SCH (08:39)
[2017-02-02] MEDS: PANTOPRAZOLE 40 MG TABLET.DR PO SCH (08:39)
[2017-02-02] MEDS: CARVEDILOL 3.125 MG TABLET PO SCH ×2 (08:40→17:00)
[2017-02-02 08:51] LABS: BASOPHILS % (AUTO) 0.1 % (0.0-2.0); HEMATOCRIT 32 % (39-51); HEMOGLOBIN 11.1 g/dL (13.5-17.5); LYMPHOCYTES # (AUTO) 0.5 /CMM (0.8-4.8); MEAN CORPUSCULAR HEMOGLOBIN 38 PG (26.0-33.0); MEAN CORPUSCULAR HGB CONC 35 g/dl (31.0-36.0); MEAN CORPUSCULAR VOLUME 107 fL (80-96); MONOCYTES # (AUTO) 0.6 /CMM (0.1-1.30); MONOCYTES % (AUTO) 15.9 % (2.0-12.0); NEUTROPHILS # (AUTO) 2.8 /CMM (1.8-8.9); PLATELET COUNT (AUTO) 93 /CMM (150-450); RDW COEFFICIENT OF VARIATION 14.6 (11.5-15.0); RED BLOOD CELL COUNT(AUTO) 2.94 MIL/uL (4.5-6.0); WHITE BLOOD COUNT (AUTO) 3.9 K/uL (4.3-11.0)
[2017-02-02 09:09] LABS: CALCIUM, SERUM 8.1 mg/dL (8.5-10.1); CREATININE 4.6 mg/dL (0.6-1.3); MAGNESIUM 1.6 mg/dL (1.8-2.4); PHOSPHORUS 1.4 mg/dL (2.5-4.9); POTASSIUM 3.2 mmol/L (3.5-5.1)
[2017-02-02 09:20] LABS: BAND % (MANUAL) 28 % (0.0-5.0); EOSINOPHILS % (MANUAL) 1 % (0-4); LYMPHOCYTES % (MANUAL) 15 % (16-48); MONOCYTES % (MANUAL) 16 % (0-11.0); NEUTROPHILS % (MANUAL) 40 (42-76)
[2017-02-02] MEDS ORDERED: Sodium Phosphate 30 MMOL in IV D5W 250 ML IV ONE (10:30)
[2017-02-02] MEDS ORDERED: SECONDARY IV SET 1 EA INFUS.SET MC ONE ×3 (10:53→15:21)
[2017-02-02] MEDS ORDERED: IV NS 0.9% 250 ML IV ONE ×2 (11:05→15:07)
[2017-02-02] MEDS ORDERED: IV SET PRIMARY PUMP SET 1 EA INFUS.SET MC ONE (11:05)
[2017-02-02] MEDS: Magnesium 1GM/D5W 100ML PREMIX 100 ML IV SCH ×3 (11:12→13:44)
[2017-02-02] MEDS: POTASSIUM CL. PREMIX PERIPHER. 50 ML IV SCH ×3 (11:12→13:11)
[2017-02-02] MEDS ORDERED: BUMETANIDE INJ 0.25 MG/ML VIAL IV SCH (13:00)
[2017-02-02] MEDS: Folic acid 1 MG in IV D5W 50 ML IV SCH (15:24)
[2017-02-02] MEDS: Thiamine 100 MG in IV D5W 50 ML IV SCH (15:58)
[2017-02-02] MEDS ORDERED: CARVEDILOL 3.125 MG TABLET PO SCH (17:00)
[2017-02-02 19:12] LABS: APPEARANCE,URINE CLEAR (CLEAR); BILIRUBIN,URINE NEGATIVE (NEGATIVE); BLOOD, URINE TRACE-INTA Ery/uL (NEGATIVE); COLOR,URINE YELLOW (YELLOW); KETONES,URINE NEGATIVE (NEGATIVE); LEUKOCYTE ESTERASE ,URINE NEGATIVE (NEGATIVE); NITRITE, URINE NEGATIVE (NEGATIVE); PROTEIN,URINE NEGATIVE (NEGATIVE); UGLUCOSE NEGATIVE (NEGATIVE)
[2017-02-02 19:18] LABS: BACTERIA,URINE None seen /HPF (None Seen); RBC,URINE 0-2 /HPF (0-2); SQUAMOUS EPITHELIAL CELL,UR None Seen /HPF (None Seen); WBC,URINE NONE SEEN /HPF (0-3)
[2017-02-02 19:32] LABS: CREATININE, URINE 72.9 MG/DL (30.0-125.0)
[2017-02-02 20:13] LABS: EOSINOPHIL,URINE Rare
[2017-02-02] MEDS: MIRTAZAPINE 15 MG TABLET PO SCH (22:10)
[2017-02-03] VITALS: BP 135/73
[2017-02-03] MEDS: NITROGLYCERIN 30 GM TUBE TP SCH ×4 (00:30→17:10)
[2017-02-03 04:00] VITALS: BP 120/88
[2017-02-03 06:36] LABS: BASOPHILS % (AUTO) 0.2 % (0.0-2.0); EOSINOPHILS % (AUTO) 0.4 % (0.0-6.0); HEMATOCRIT 31 % (39-51); HEMOGLOBIN 11.1 g/dL (13.5-17.5); LYMPHOCYTES # (AUTO) 0.8 /CMM (0.8-4.8); LYMPHOCYTES % (AUTO) 16.7 % (20.0-44.0); MEAN CORPUSCULAR HEMOGLOBIN 38 PG (26.0-33.0); MEAN CORPUSCULAR HGB CONC 35 g/dl (31.0-36.0); MEAN CORPUSCULAR VOLUME 108 fL (80-96); MONOCYTES # (AUTO) 1.5 /CMM (0.1-1.30); MONOCYTES % (AUTO) 31.7 % (2.0-12.0); NEUTROPHILS # (AUTO) 2.5 /CMM (1.8-8.9); PLATELET COUNT (AUTO) 106 /CMM (150-450); RDW COEFFICIENT OF VARIATION 14.6 (11.5-15.0); RED BLOOD CELL COUNT(AUTO) 2.92 MIL/uL (4.5-6.0); WHITE BLOOD COUNT (AUTO) 4.8 K/uL (4.3-11.0)
[2017-02-03 07:06] LABS: CALCIUM, SERUM 8.1 mg/dL (8.5-10.1); CREATININE 3.4 mg/dL (0.6-1.3); MAGNESIUM 1.4 mg/dL (1.8-2.4); PHOSPHORUS 3.5 mg/dL (2.5-4.9)
[2017-02-03 07:12] LABS: POTASSIUM 2.8 mmol/L (3.5-5.1)
[2017-02-03 07:27] LABS: BAND % (MANUAL) 9 % (0.0-5.0); EOSINOPHILS % (MANUAL) 1 % (0-4); LYMPHOCYTES % (MANUAL) 16 % (16-48); MONOCYTES % (MANUAL) 28 % (0-11.0); NEUTROPHILS % (MANUAL) 46 (42-76)
[2017-02-03 08:00] VITALS: BP 129/87
[2017-02-03] MEDS: PANTOPRAZOLE 40 MG TABLET.DR PO SCH (08:58)
[2017-02-03] MEDS: ESCITALOPRAM OXALATE (10 MG) 10 MG TABLET PO SCH (08:59)
[2017-02-03] MEDS: BUMETANIDE INJ 0.25 MG/ML VIAL IV SCH (08:59)
[2017-02-03] MEDS: POTASSIUM CHLORIDE 20 MEQ TAB.PRT.SR PO SCH ×2 (08:59→10:27)
[2017-02-03] MEDS: CLONIDINE HCL 0.1 MG TABLET PO SCH ×2 (09:00→16:35)
[2017-02-03] MEDS: CARVEDILOL 3.125 MG TABLET PO SCH ×2 (09:01→16:35)
[2017-02-03] MEDS: LORAZEPAM INJ 2 MG/ML VIAL IV PRN ×2 (09:01→17:39)
[2017-02-03] MEDS ORDERED: POTASSIUM CL. PREMIX PERIPHER. 50 ML IV SCH (10:30)
[2017-02-03] MEDS ORDERED: SECONDARY IV SET 1 EA INFUS.SET MC ONE (11:41)
[2017-02-03] MEDS: Magnesium 1GM/D5W 100ML PREMIX 100 ML IV SCH ×2 (11:48→13:06)
[2017-02-03] MEDS: FOLIC ACID 1 MG TABLET PO SCH (15:49)
[2017-02-03] MEDS: THIAMINE HCL 100 MG TABLET PO SCH (15:49)
[2017-02-03 16:00] VITALS: BP 101/62
[2017-02-03 18:00] VITALS: BP 101/62
[2017-02-03] MEDS: MIRTAZAPINE 15 MG TABLET PO SCH (21:38)
[2017-02-03 22:00] VITALS: BP 106/65
[2017-02-04] MEDS: NITROGLYCERIN 30 GM TUBE TP SCH ×4 (00:20→18:00)
[2017-02-04 06:36] LABS: BASOPHILS % (AUTO) 0.1 % (0.0-2.0); EOSINOPHILS % (AUTO) 0.5 % (0.0-6.0); HEMATOCRIT 34 % (39-51); HEMOGLOBIN 11.6 g/dL (13.5-17.5); LYMPHOCYTES # (AUTO) 0.9 /CMM (0.8-4.8); LYMPHOCYTES % (AUTO) 15.3 % (20.0-44.0); MEAN CORPUSCULAR HEMOGLOBIN 38 PG (26.0-33.0); MEAN CORPUSCULAR HGB CONC 35 g/dl (31.0-36.0); MEAN CORPUSCULAR VOLUME 109 fL (80-96); MONOCYTES # (AUTO) 1.9 /CMM (0.1-1.30); MONOCYTES % (AUTO) 31.5 % (2.0-12.0); NEUTROPHILS # (AUTO) 3.2 /CMM (1.8-8.9); NEUTROPHILS % (AUTO) 52.6 % (43.0-81.0); PLATELET COUNT (AUTO) 119 /CMM (150-450); RDW COEFFICIENT OF VARIATION 14.9 (11.5-15.0); RED BLOOD CELL COUNT(AUTO) 3.08 MIL/uL (4.5-6.0); WHITE BLOOD COUNT (AUTO) 6.1 K/uL (4.3-11.0)
[2017-02-04 06:57] LABS: CALCIUM, SERUM 8.4 mg/dL (8.5-10.1); CREATININE 2.8 mg/dL (0.6-1.3); MAGNESIUM 1.4 mg/dL (1.8-2.4); PHOSPHORUS 3.4 mg/dL (2.5-4.9); POTASSIUM 3.9 mmol/L (3.5-5.1)
[2017-02-04 08:00] VITALS: BP 119/77
[2017-02-04] MEDS ORDERED: Magnesium 1GM/D5W 100ML PREMIX PIGGYBACK IV ONE (08:30)
[2017-02-04] MEDS: PANTOPRAZOLE 40 MG TABLET.DR PO SCH (08:52)
[2017-02-04] MEDS: THIAMINE HCL 100 MG TABLET PO SCH (08:52)
[2017-02-04] MEDS: FOLIC ACID 1 MG TABLET PO SCH (08:52)
[2017-02-04] MEDS: ESCITALOPRAM OXALATE (10 MG) 10 MG TABLET PO SCH (08:52)
[2017-02-04] MEDS: BUMETANIDE INJ 0.25 MG/ML VIAL IV SCH (08:53)
[2017-02-04] MEDS: CARVEDILOL 3.125 MG TABLET PO SCH ×2 (08:56→16:58)
[2017-02-04] MEDS ORDERED: Magnesium 1GM/D5W 100ML PREMIX 100 ML IV SCH (09:00)
[2017-02-04 09:22] LABS: BAND % (MANUAL) 5 % (0.0-5.0); EOSINOPHILS % (MANUAL) 1 % (0-4); LYMPHOCYTES % (MANUAL) 19 % (16-48); MONOCYTES % (MANUAL) 44 % (0-11.0); NEUTROPHILS % (MANUAL) 31 (42-76)
[2017-02-04 11:30] VITALS: BP 107/62
[2017-02-04 16:00] VITALS: BP 118/71
[2017-02-04 18:00] VITALS: BP 118/71
[2017-02-04] MEDS: MIRTAZAPINE 15 MG TABLET PO SCH (21:45)
[2017-02-04 22:00] VITALS: BP 113/66
[2017-02-05] MEDS: NITROGLYCERIN 30 GM TUBE TP SCH ×5 (00:18→23:24)
[2017-02-05] MEDS: LORAZEPAM INJ 2 MG/ML VIAL IV PRN ×4 (00:19→23:40)
[2017-02-05 08:00] VITALS: BP 122/69
[2017-02-05] MEDS: BUMETANIDE (1 MG) 1 MG TABLET PO SCH (08:51)
[2017-02-05] MEDS: PANTOPRAZOLE 40 MG TABLET.DR PO SCH (08:52)
[2017-02-05] MEDS: ESCITALOPRAM OXALATE (10 MG) 10 MG TABLET PO SCH (08:52)
[2017-02-05] MEDS: FOLIC ACID 1 MG TABLET PO SCH (08:53)
[2017-02-05] MEDS: CARVEDILOL 3.125 MG TABLET PO SCH ×2 (08:53→17:04)
[2017-02-05] MEDS: THIAMINE HCL 100 MG TABLET PO SCH (08:53)
[2017-02-05] MEDS: Magnesium 1GM/D5W 100ML PREMIX 100 ML IV SCH ×2 (09:58→11:24)
[2017-02-05 15:59] VITALS: BP 125/70
[2017-02-05 20:00] VITALS: BP 99/59
[2017-02-05] MEDS: MIRTAZAPINE 15 MG TABLET PO SCH (21:24)
[2017-02-06] MEDS: NITROGLYCERIN 30 GM TUBE TP SCH ×4 (05:20→23:25)
[2017-02-06 08:00] VITALS: BP 136/76
[2017-02-06 08:05] VITALS: BP 136/76
[2017-02-06 08:48] LABS: BASOPHILS % (AUTO) 0.2 % (0.0-2.0); EOSINOPHILS # (AUTO) 0.1 /CMM (0.0-0.7); EOSINOPHILS % (AUTO) 0.6 % (0.0-6.0); HEMATOCRIT 34 % (39-51); HEMOGLOBIN 11.8 g/dL (13.5-17.5); LYMPHOCYTES # (AUTO) 1.1 /CMM (0.8-4.8); MEAN CORPUSCULAR HEMOGLOBIN 37 PG (26.0-33.0); MEAN CORPUSCULAR HGB CONC 34 g/dl (31.0-36.0); MEAN CORPUSCULAR VOLUME 107 fL (80-96); MONOCYTES # (AUTO) 1.1 /CMM (0.1-1.30); MONOCYTES % (AUTO) 7.1 % (2.0-12.0); NEUTROPHILS # (AUTO) 13.2 /CMM (1.8-8.9); NEUTROPHILS % (AUTO) 85.1 % (43.0-81.0); PLATELET COUNT (AUTO) 273 /CMM (150-450); RDW COEFFICIENT OF VARIATION 14.7 (11.5-15.0); RED BLOOD CELL COUNT(AUTO) 3.22 MIL/uL (4.5-6.0); WHITE BLOOD COUNT (AUTO) 15.5 K/uL (4.3-11.0)
[2017-02-06] MEDS: PANTOPRAZOLE 40 MG TABLET.DR PO SCH (08:54)
[2017-02-06] MEDS: FOLIC ACID 1 MG TABLET PO SCH (08:55)
[2017-02-06] MEDS: THIAMINE HCL 100 MG TABLET PO SCH (08:55)
[2017-02-06] MEDS: ESCITALOPRAM OXALATE (10 MG) 10 MG TABLET PO SCH (08:55)
[2017-02-06] MEDS: BUMETANIDE (1 MG) 1 MG TABLET PO SCH (08:55)
[2017-02-06] MEDS: CARVEDILOL 3.125 MG TABLET PO SCH ×2 (08:56→17:11)
[2017-02-06 09:45] LABS: BAND % (MANUAL) 4 % (0.0-5.0); EOSINOPHILS % (MANUAL) 1 % (0-4); LYMPHOCYTES % (MANUAL) 7 % (16-48); MONOCYTES % (MANUAL) 3 % (0-11.0); MYELOCYTES % 1 % (0-0); NEUTROPHILS % (MANUAL) 84 (42-76)
[2017-02-06 10:45] LABS: CALCIUM, SERUM 8.6 mg/dL (8.5-10.1); CREATININE 2.1 mg/dL (0.6-1.3); POTASSIUM 3.2 mmol/L (3.5-5.1)
[2017-02-06] MEDS: LORAZEPAM INJ 2 MG/ML VIAL IV PRN ×2 (11:06→17:11)
[2017-02-06] MEDS ORDERED: POTASSIUM CHLORIDE 20 MEQ POWDER PACKET PO ONE (12:30)
[2017-02-06] MEDS: LEVOFLOXACIN (750 MG) 750 MG TABLET PO SCH (12:42)
[2017-02-06 16:14] VITALS: BP 111/67
[2017-02-06 20:00] VITALS: BP 120/71
[2017-02-06] MEDS: MIRTAZAPINE 15 MG TABLET PO SCH (21:50)
[2017-02-07] MEDS: LORAZEPAM INJ 2 MG/ML VIAL IV PRN ×5 (00:58→23:02)
[2017-02-07] MEDS: HYDROCODONE/APAP 5/325MG 1 EACH TABLET PO PRN ×2 (03:42→12:41)
[2017-02-07] MEDS: NITROGLYCERIN 30 GM TUBE TP SCH ×4 (06:23→23:14)
[2017-02-07 08:00] VITALS: BP 118/79
[2017-02-07] MEDS: PANTOPRAZOLE 40 MG TABLET.DR PO SCH (08:35)
[2017-02-07] MEDS: ESCITALOPRAM OXALATE (10 MG) 10 MG TABLET PO SCH (08:35)
[2017-02-07] MEDS: FOLIC ACID 1 MG TABLET PO SCH (08:35)
[2017-02-07] MEDS: THIAMINE HCL 100 MG TABLET PO SCH (08:35)
[2017-02-07] MEDS: BUMETANIDE (1 MG) 1 MG TABLET PO SCH (08:35)
[2017-02-07] MEDS: CARVEDILOL 3.125 MG TABLET PO SCH ×2 (08:36→17:31)
[2017-02-07 09:41] LABS: BASOPHILS % (AUTO) 0.1 % (0.0-2.0); EOSINOPHILS % (AUTO) 0.1 % (0.0-6.0); HEMATOCRIT 34 % (39-51); HEMOGLOBIN 11.7 g/dL (13.5-17.5); LYMPHOCYTES # (AUTO) 0.9 /CMM (0.8-4.8); LYMPHOCYTES % (AUTO) 5.7 % (20.0-44.0); MEAN CORPUSCULAR HEMOGLOBIN 37 PG (26.0-33.0); MEAN CORPUSCULAR HGB CONC 34 g/dl (31.0-36.0); MEAN CORPUSCULAR VOLUME 108 fL (80-96); MONOCYTES # (AUTO) 1.1 /CMM (0.1-1.30); MONOCYTES % (AUTO) 6.4 % (2.0-12.0); NEUTROPHILS # (AUTO) 14.6 /CMM (1.8-8.9); NEUTROPHILS % (AUTO) 87.7 % (43.0-81.0); PLATELET COUNT (AUTO) 304 /CMM (150-450); RDW COEFFICIENT OF VARIATION 15.1 (11.5-15.0); RED BLOOD CELL COUNT(AUTO) 3.18 MIL/uL (4.5-6.0); WHITE BLOOD COUNT (AUTO) 16.7 K/uL (4.3-11.0)
[2017-02-07 09:53] LABS: CALCIUM, SERUM 8.5 mg/dL (8.5-10.1); CREATININE 2.4 mg/dL (0.6-1.3); POTASSIUM 3.4 mmol/L (3.5-5.1)
[2017-02-07 10:56] LABS: BAND % (MANUAL) 5 % (0.0-5.0); LYMPHOCYTES % (MANUAL) 5 % (16-48); MONOCYTES % (MANUAL) 6 % (0-11.0); NEUTROPHILS % (MANUAL) 84 (42-76)
[2017-02-07] MEDS ORDERED: POTASSIUM CHLORIDE 10 MEQ TABLET.SA PO SCH (17:00)
[2017-02-07 17:29] VITALS: BP 110/70
[2017-02-07] MEDS ORDERED: FEE PK DOSING 1 MIN EA MC ONE (17:30)
[2017-02-07] MEDS: PIPERACILLIN /TAZOBACTAM 3.375 G in IV D5W 50 ML IV SCH ×2 (18:32→23:14)
[2017-02-07] MEDS: VANCOMYCIN 1 GM in IV D5W 250 ML IV SCH (19:23)
[2017-02-07 20:00] VITALS: BP 101/62
[2017-02-07] MEDS: MIRTAZAPINE 15 MG TABLET PO SCH (21:21)
[2017-02-08] MEDS: LORAZEPAM INJ 2 MG/ML VIAL IV PRN ×4 (03:09→21:24)
[2017-02-08] MEDS: HYDROCODONE/APAP 5/325MG 1 EACH TABLET PO PRN (05:46)
[2017-02-08] MEDS: PIPERACILLIN /TAZOBACTAM 3.375 G in IV D5W 50 ML IV SCH ×4 (05:46→23:36)
[2017-02-08] MEDS: NITROGLYCERIN 30 GM TUBE TP SCH ×4 (05:49→23:30)
[2017-02-08 07:02] LABS: BASOPHILS % (AUTO) 0.1 % (0.0-2.0); EOSINOPHILS % (AUTO) 0.2 % (0.0-6.0); HEMATOCRIT 30 % (39-51); HEMOGLOBIN 10.4 g/dL (13.5-17.5); LYMPHOCYTES # (AUTO) 0.9 /CMM (0.8-4.8); LYMPHOCYTES % (AUTO) 4.9 % (20.0-44.0); MEAN CORPUSCULAR HEMOGLOBIN 37 PG (26.0-33.0); MEAN CORPUSCULAR HGB CONC 35 g/dl (31.0-36.0); MEAN CORPUSCULAR VOLUME 107 fL (80-96); MONOCYTES # (AUTO) 0.6 /CMM (0.1-1.30); MONOCYTES % (AUTO) 3.3 % (2.0-12.0); NEUTROPHILS # (AUTO) 15.9 /CMM (1.8-8.9); NEUTROPHILS % (AUTO) 91.5 % (43.0-81.0); PLATELET COUNT (AUTO) 303 /CMM (150-450); RDW COEFFICIENT OF VARIATION 15.6 (11.5-15.0); RED BLOOD CELL COUNT(AUTO) 2.78 MIL/uL (4.5-6.0); WHITE BLOOD COUNT (AUTO) 17.3 K/uL (4.3-11.0)
[2017-02-08 07:25] LABS: CALCIUM, SERUM 7.9 mg/dL (8.5-10.1); CREATININE 2.6 mg/dL (0.6-1.3); POTASSIUM 3.1 mmol/L (3.5-5.1)
[2017-02-08 08:22] LABS: BAND % (MANUAL) 3 % (0.0-5.0); LYMPHOCYTES % (MANUAL) 3 % (16-48); MONOCYTES % (MANUAL) 8 % (0-11.0); NEUTROPHILS % (MANUAL) 86 (42-76)
[2017-02-08] MEDS: PANTOPRAZOLE 40 MG TABLET.DR PO SCH (08:43)
[2017-02-08] MEDS: FOLIC ACID 1 MG TABLET PO SCH (08:43)
[2017-02-08] MEDS: BUMETANIDE (1 MG) 1 MG TABLET PO SCH (08:43)
[2017-02-08] MEDS: ESCITALOPRAM OXALATE (10 MG) 10 MG TABLET PO SCH (08:43)
[2017-02-08] MEDS: THIAMINE HCL 100 MG TABLET PO SCH (08:44)
[2017-02-08] MEDS: CARVEDILOL 3.125 MG TABLET PO SCH ×2 (08:56→17:31)
[2017-02-08] MEDS ORDERED: POTASSIUM CHLORIDE 20 MEQ POWDER PACKET PO ONE (09:00)
[2017-02-08] MEDS ORDERED: POTASSIUM CHLORIDE 20 MEQ TAB.PRT.SR PO ONE (09:30)
[2017-02-08] MEDS: VANCOMYCIN 1 GM in IV D5W 250 ML IV SCH (12:39)
[2017-02-08] MEDS: LEVOFLOXACIN (750 MG) 750 MG TABLET PO SCH (12:41)
[2017-02-08 20:00] VITALS: BP 114/82
[2017-02-08] MEDS: MIRTAZAPINE 15 MG TABLET PO SCH (21:24)
[2017-02-08] MEDS: TRAZODONE 50 MG TABLET PO PRN (23:37)
[2017-02-09] MEDS: LORAZEPAM INJ 2 MG/ML VIAL IV PRN ×5 (01:29→20:35)
[2017-02-09] MEDS: PIPERACILLIN /TAZOBACTAM 3.375 G in IV D5W 50 ML IV SCH ×4 (05:15→23:15)
[2017-02-09] MEDS: NITROGLYCERIN 30 GM TUBE TP SCH ×3 (05:16→18:00)
[2017-02-09] MEDS: VANCOMYCIN 1 GM in IV D5W 250 ML IV SCH (05:38)
[2017-02-09 06:49] LABS: BASOPHILS % (AUTO) 0.1 % (0.0-2.0); EOSINOPHILS % (AUTO) 0.1 % (0.0-6.0); HEMATOCRIT 30 % (39-51); HEMOGLOBIN 10.3 g/dL (13.5-17.5); LYMPHOCYTES # (AUTO) 0.7 /CMM (0.8-4.8); LYMPHOCYTES % (AUTO) 3.7 % (20.0-44.0); MEAN CORPUSCULAR HEMOGLOBIN 38 PG (26.0-33.0); MEAN CORPUSCULAR HGB CONC 35 g/dl (31.0-36.0); MEAN CORPUSCULAR VOLUME 108 fL (80-96); MONOCYTES # (AUTO) 0.4 /CMM (0.1-1.30); NEUTROPHILS # (AUTO) 17.2 /CMM (1.8-8.9); NEUTROPHILS % (AUTO) 94.1 % (43.0-81.0); PLATELET COUNT (AUTO) 328 /CMM (150-450); RDW COEFFICIENT OF VARIATION 15.7 (11.5-15.0); RED BLOOD CELL COUNT(AUTO) 2.75 MIL/uL (4.5-6.0); WHITE BLOOD COUNT (AUTO) 18.2 K/uL (4.3-11.0)
[2017-02-09 06:59] LABS: CALCIUM, SERUM 8.4 mg/dL (8.5-10.1); CREATININE 2.4 mg/dL (0.6-1.3); MAGNESIUM 1.4 mg/dL (1.8-2.4); PHOSPHORUS 3.7 mg/dL (2.5-4.9); POTASSIUM 3.1 mmol/L (3.5-5.1)
[2017-02-09] MEDS ORDERED: POTASSIUM CHLORIDE 20 MEQ POWDER PACKET PO ONE (07:30)
[2017-02-09] MEDS: LACTOSE-FREE FOOD 237 ML LIQUID PO SCH ×2 (08:00→17:43)
[2017-02-09 08:14] LABS: BAND % (MANUAL) 24 % (0.0-5.0); LYMPHOCYTES % (MANUAL) 3 % (16-48); NEUTROPHILS % (MANUAL) 68 (42-76)
[2017-02-09 08:18] VITALS: BP 116/79
[2017-02-09 08:23] LABS: MONOCYTES % (MANUAL) 5 % (0-11.0)
[2017-02-09] MEDS: Magnesium 1GM/D5W 100ML PREMIX 100 ML IV SCH ×4 (08:30→10:33)
[2017-02-09] MEDS: CARVEDILOL 3.125 MG TABLET PO SCH ×2 (09:00→17:00)
[2017-02-09] MEDS: FOLIC ACID 1 MG TABLET PO SCH (09:00)
[2017-02-09] MEDS: THIAMINE HCL 100 MG TABLET PO SCH (09:29)
[2017-02-09] MEDS: PANTOPRAZOLE 40 MG TABLET.DR PO SCH (09:29)
[2017-02-09] MEDS: ESCITALOPRAM OXALATE (10 MG) 10 MG TABLET PO SCH (09:30)
[2017-02-09 16:19] VITALS: BP 114/74
[2017-02-09] MEDS: VANCOMYCIN HCL 125 MG/2.5 ML ORAL.SUSP PO SCH ×2 (17:00→20:35)
[2017-02-09] MEDS: HYDROCODONE/APAP 5/325MG 1 EACH TABLET PO PRN ×2 (17:33→23:22)
[2017-02-09 20:00] VITALS: BP 107/51
[2017-02-09] MEDS: MIRTAZAPINE 15 MG TABLET PO SCH (22:05)
[2017-02-09] MEDS: TRAZODONE 50 MG TABLET PO PRN (22:13)
[2017-02-10] MEDS: VANCOMYCIN 1 GM in IV D5W 250 ML IV SCH ×2 (01:04→17:41)
[2017-02-10] MEDS: LORAZEPAM INJ 2 MG/ML VIAL IV PRN ×2 (03:48→08:26)
[2017-02-10] MEDS: PIPERACILLIN /TAZOBACTAM 3.375 G in IV D5W 50 ML IV SCH ×4 (05:52→23:01)
[2017-02-10] MEDS: NITROGLYCERIN 30 GM TUBE TP SCH ×5 (06:00→23:01)
[2017-02-10 06:28] LABS: BASOPHILS % (AUTO) 0.3 % (0.0-2.0); EOSINOPHILS # (AUTO) 0.1 /CMM (0.0-0.7); EOSINOPHILS % (AUTO) 0.7 % (0.0-6.0); HEMATOCRIT 29 % (39-51); LYMPHOCYTES % (AUTO) 5.6 % (20.0-44.0); MEAN CORPUSCULAR HEMOGLOBIN 37 PG (26.0-33.0); MEAN CORPUSCULAR HGB CONC 34 g/dl (31.0-36.0); MEAN CORPUSCULAR VOLUME 108 fL (80-96); MONOCYTES # (AUTO) 0.6 /CMM (0.1-1.30); MONOCYTES % (AUTO) 3.3 % (2.0-12.0); NEUTROPHILS # (AUTO) 16.2 /CMM (1.8-8.9); NEUTROPHILS % (AUTO) 90.1 % (43.0-81.0); PLATELET COUNT (AUTO) 359 /CMM (150-450); RDW COEFFICIENT OF VARIATION 15.6 (11.5-15.0)
[2017-02-10 06:42] LABS: CALCIUM, SERUM 8.8 mg/dL (8.5-10.1); POTASSIUM 3.5 mmol/L (3.5-5.1)
[2017-02-10 07:38] LABS: BAND % (MANUAL) 1 % (0.0-5.0); LYMPHOCYTES % (MANUAL) 5 % (16-48); MONOCYTES % (MANUAL) 2 % (0-11.0); NEUTROPHILS % (MANUAL) 92 (42-76)
[2017-02-10 08:09] VITALS: BP 108/82
[2017-02-10] MEDS: THIAMINE HCL 100 MG TABLET PO SCH (08:15)
[2017-02-10] MEDS: PANTOPRAZOLE 40 MG TABLET.DR PO SCH (08:15)
[2017-02-10] MEDS: BUMETANIDE (1 MG) 1 MG TABLET PO SCH ×2 (08:15→09:34)
[2017-02-10] MEDS: FOLIC ACID 1 MG TABLET PO SCH (08:15)
[2017-02-10] MEDS: ESCITALOPRAM OXALATE (10 MG) 10 MG TABLET PO SCH (08:15)
[2017-02-10] MEDS: LACTOSE-FREE FOOD 237 ML LIQUID PO SCH ×2 (08:16→16:31)
[2017-02-10] MEDS: VANCOMYCIN HCL 125 MG/2.5 ML ORAL.SUSP PO SCH ×4 (08:18→20:08)
[2017-02-10] MEDS: CARVEDILOL 3.125 MG TABLET PO SCH ×2 (08:26→16:32)
[2017-02-10] MEDS ORDERED: POTASSIUM CHLORIDE 20 MEQ POWDER PACKET PO ONE (09:00)
[2017-02-10] MEDS ORDERED: VITAMINS A AND D 56.7 GM TUBE TP PRN (09:00)
[2017-02-10] MEDS: POTASSIUM CHLORIDE 20 MEQ TAB.PRT.SR PO SCH (09:34)
[2017-02-10] MEDS: ACYCLOVIR 200 MG CAPSULE PO SCH ×3 (10:36→16:32)
[2017-02-10] MEDS: HYDROCODONE/APAP 5/325MG 1 EACH TABLET PO PRN ×2 (11:49→18:16)
[2017-02-10] MEDS: LEVOFLOXACIN (750 MG) 750 MG TABLET PO SCH (12:06)
[2017-02-10] MEDS: CHLORDIAZEPOXIDE HCL 25 MG CAPSULE PO PRN ×2 (15:23→23:31)
[2017-02-10 16:03] VITALS: BP 113/72
[2017-02-10 20:00] VITALS: BP 110/69
[2017-02-10] MEDS: MIRTAZAPINE 15 MG TABLET PO SCH (21:00)
[2017-02-10] MEDS: TRAZODONE 50 MG TABLET PO PRN (21:12)
[2017-02-11] MEDS: HYDROCODONE/APAP 5/325MG 1 EACH TABLET PO PRN ×4 (04:07→23:58)
[2017-02-11] MEDS: PIPERACILLIN /TAZOBACTAM 3.375 G in IV D5W 50 ML IV SCH ×4 (05:02→23:06)
[2017-02-11] MEDS: NITROGLYCERIN 30 GM TUBE TP SCH ×4 (05:21→23:15)
[2017-02-11 07:02] LABS: CREATININE 1.9 mg/dL (0.6-1.3); POTASSIUM 3.8 mmol/L (3.5-5.1)
[2017-02-11 08:00] VITALS: BP 105/73
[2017-02-11] MEDS: LACTOSE-FREE FOOD 237 ML LIQUID PO SCH ×2 (08:00→16:25)
[2017-02-11] MEDS: ACYCLOVIR 200 MG CAPSULE PO SCH ×3 (08:09→17:48)
[2017-02-11] MEDS: ESCITALOPRAM OXALATE (10 MG) 10 MG TABLET PO SCH (08:09)
[2017-02-11] MEDS: BUMETANIDE (1 MG) 1 MG TABLET PO SCH (08:09)
[2017-02-11] MEDS: CHLORDIAZEPOXIDE HCL 25 MG CAPSULE PO PRN ×3 (08:09→20:17)
[2017-02-11] MEDS: POTASSIUM CHLORIDE 20 MEQ TAB.PRT.SR PO SCH (08:10)
[2017-02-11] MEDS: PANTOPRAZOLE 40 MG TABLET.DR PO SCH (08:10)
[2017-02-11] MEDS: FOLIC ACID 1 MG TABLET PO SCH (08:10)
[2017-02-11] MEDS: THIAMINE HCL 100 MG TABLET PO SCH (08:10)
[2017-02-11] MEDS: CARVEDILOL 3.125 MG TABLET PO SCH ×2 (08:10→17:49)
[2017-02-11 09:02] LABS: BASOPHILS # (AUTO) 0.1 /CMM (0.0-0.2); BASOPHILS % (AUTO) 0.3 % (0.0-2.0); EOSINOPHILS % (AUTO) 0.1 % (0.0-6.0); HEMATOCRIT 31 % (39-51); HEMOGLOBIN 10.4 g/dL (13.5-17.5); LYMPHOCYTES # (AUTO) 1.1 /CMM (0.8-4.8); LYMPHOCYTES % (AUTO) 6.6 % (20.0-44.0); MEAN CORPUSCULAR HEMOGLOBIN 37 PG (26.0-33.0); MEAN CORPUSCULAR HGB CONC 34 g/dl (31.0-36.0); MEAN CORPUSCULAR VOLUME 109 fL (80-96); MONOCYTES # (AUTO) 0.7 /CMM (0.1-1.30); MONOCYTES % (AUTO) 4.1 % (2.0-12.0); NEUTROPHILS # (AUTO) 14.8 /CMM (1.8-8.9); NEUTROPHILS % (AUTO) 88.9 % (43.0-81.0); PLATELET COUNT (AUTO) 379 /CMM (150-450); RDW COEFFICIENT OF VARIATION 15.7 (11.5-15.0); RED BLOOD CELL COUNT(AUTO) 2.79 MIL/uL (4.5-6.0); WHITE BLOOD COUNT (AUTO) 16.6 K/uL (4.3-11.0)
[2017-02-11] MEDS: VANCOMYCIN HCL 125 MG/2.5 ML ORAL.SUSP PO SCH ×4 (09:07→21:24)
[2017-02-11 09:23] LABS: BAND % (MANUAL) 3 % (0.0-5.0); LYMPHOCYTES % (MANUAL) 8 % (16-48); MONOCYTES % (MANUAL) 5 % (0-11.0); NEUTROPHILS % (MANUAL) 84 (42-76)
[2017-02-11] MEDS: VANCOMYCIN 1 GM in IV D5W 250 ML IV SCH (12:07)
[2017-02-11 16:00] VITALS: BP 111/72
[2017-02-11 20:00] VITALS: BP 106/74
[2017-02-11 20:01] VITALS: BP 106/74
[2017-02-11] MEDS: MIRTAZAPINE 15 MG TABLET PO SCH (21:24)
[2017-02-11] MEDS: TRAZODONE 50 MG TABLET PO PRN (23:06)
[2017-02-12] MEDS: CHLORDIAZEPOXIDE HCL 25 MG CAPSULE PO PRN ×4 (02:17→20:21)
[2017-02-12] MEDS: PIPERACILLIN /TAZOBACTAM 3.375 G in IV D5W 50 ML IV SCH ×4 (05:20→23:02)
[2017-02-12] MEDS: NITROGLYCERIN 30 GM TUBE TP SCH ×4 (05:22→23:02)
[2017-02-12 06:51] LABS: CALCIUM, SERUM 8.8 mg/dL (8.5-10.1); POTASSIUM 3.5 mmol/L (3.5-5.1)
[2017-02-12 08:00] VITALS: BP 127/76
[2017-02-12] MEDS: LACTOSE-FREE FOOD 237 ML LIQUID PO SCH ×2 (08:00→17:00)
[2017-02-12 08:24] LABS: BASOPHILS # (AUTO) 0.1 /CMM (0.0-0.2); BASOPHILS % (AUTO) 0.7 % (0.0-2.0); EOSINOPHILS # (AUTO) 0.1 /CMM (0.0-0.7); EOSINOPHILS % (AUTO) 0.6 % (0.0-6.0); HEMATOCRIT 31 % (39-51); HEMOGLOBIN 10.3 g/dL (13.5-17.5); LYMPHOCYTES # (AUTO) 1.3 /CMM (0.8-4.8); LYMPHOCYTES % (AUTO) 8.6 % (20.0-44.0); MEAN CORPUSCULAR HEMOGLOBIN 37 PG (26.0-33.0); MEAN CORPUSCULAR HGB CONC 33 g/dl (31.0-36.0); MEAN CORPUSCULAR VOLUME 109 fL (80-96); MONOCYTES # (AUTO) 0.7 /CMM (0.1-1.30); MONOCYTES % (AUTO) 4.2 % (2.0-12.0); NEUTROPHILS # (AUTO) 13.5 /CMM (1.8-8.9); NEUTROPHILS % (AUTO) 85.9 % (43.0-81.0); PLATELET COUNT (AUTO) 381 /CMM (150-450); RDW COEFFICIENT OF VARIATION 15.7 (11.5-15.0); RED BLOOD CELL COUNT(AUTO) 2.82 MIL/uL (4.5-6.0); WHITE BLOOD COUNT (AUTO) 15.7 K/uL (4.3-11.0)
[2017-02-12] MEDS: ACYCLOVIR 200 MG CAPSULE PO SCH ×3 (08:34→16:44)
[2017-02-12] MEDS: ESCITALOPRAM OXALATE (10 MG) 10 MG TABLET PO SCH (08:34)
[2017-02-12] MEDS: BUMETANIDE (1 MG) 1 MG TABLET PO SCH (08:34)
[2017-02-12] MEDS: PANTOPRAZOLE 40 MG TABLET.DR PO SCH (08:35)
[2017-02-12] MEDS: VANCOMYCIN HCL 125 MG/2.5 ML ORAL.SUSP PO SCH ×4 (08:35→21:04)
[2017-02-12] MEDS: FOLIC ACID 1 MG TABLET PO SCH (08:35)
[2017-02-12] MEDS: POTASSIUM CHLORIDE 20 MEQ TAB.PRT.SR PO SCH (08:35)
[2017-02-12] MEDS: CARVEDILOL 3.125 MG TABLET PO SCH ×2 (08:35→16:44)
[2017-02-12] MEDS: THIAMINE HCL 100 MG TABLET PO SCH (08:35)
[2017-02-12 10:05] LABS: BAND % (MANUAL) 5 % (0.0-5.0); LYMPHOCYTES % (MANUAL) 11 % (16-48); MONOCYTES % (MANUAL) 8 % (0-11.0); MYELOCYTES % 3 % (0-0); NEUTROPHILS % (MANUAL) 73 (42-76)
[2017-02-12] MEDS: LEVOFLOXACIN (750 MG) 750 MG TABLET PO SCH (12:09)
[2017-02-12] MEDS ORDERED: IV NS 0.9% 250 ML IV ONE (12:17)
[2017-02-12 16:05] VITALS: BP 119/72
[2017-02-12] MEDS: HYDROCODONE/APAP 5/325MG 1 EACH TABLET PO PRN (18:08)
[2017-02-12 20:00] VITALS: BP 106/62
[2017-02-12] MEDS: MIRTAZAPINE 15 MG TABLET PO SCH (21:04)
[2017-02-12] MEDS: TRAZODONE 50 MG TABLET PO PRN (23:02)
[2017-02-13] VITALS: BP_SYST 124; BP_SYST 129; BP_DIAS 62
[2017-02-13] MEDS: CHLORDIAZEPOXIDE HCL 25 MG CAPSULE PO PRN ×4 (02:31→15:19)
[2017-02-13] MEDS: NITROGLYCERIN 30 GM TUBE TP SCH ×3 (05:12→17:20)
[2017-02-13] MEDS: PIPERACILLIN /TAZOBACTAM 3.375 G in IV D5W 50 ML IV SCH ×3 (05:13→17:21)
[2017-02-13 06:43] LABS: CREATININE 1.9 mg/dL (0.6-1.3); POTASSIUM 3.5 mmol/L (3.5-5.1)
[2017-02-13 08:00] VITALS: BP 111/67
[2017-02-13] MEDS: LACTOSE-FREE FOOD 237 ML LIQUID PO SCH ×2 (08:00→17:00)
[2017-02-13] MEDS: THIAMINE HCL 100 MG TABLET PO SCH (08:52)
[2017-02-13] MEDS: ACYCLOVIR 200 MG CAPSULE PO SCH ×3 (08:52→17:20)
[2017-02-13] MEDS: FOLIC ACID 1 MG TABLET PO SCH (08:52)
[2017-02-13] MEDS: CARVEDILOL 3.125 MG TABLET PO SCH ×2 (08:53→17:20)
[2017-02-13] MEDS: POTASSIUM CHLORIDE 20 MEQ TAB.PRT.SR PO SCH (08:53)
[2017-02-13] MEDS: PANTOPRAZOLE 40 MG TABLET.DR PO SCH (08:53)
[2017-02-13] MEDS: BUMETANIDE (1 MG) 1 MG TABLET PO SCH (08:53)
[2017-02-13] MEDS: ESCITALOPRAM OXALATE (10 MG) 10 MG TABLET PO SCH (08:54)
[2017-02-13] MEDS: VANCOMYCIN HCL 125 MG/2.5 ML ORAL.SUSP PO SCH ×3 (08:54→17:20)
[2017-02-13 16:00] VITALS: BP 118/71
[2017-02-13 17:20] VITALS: BP 118/70
[2017-02-15 09:21] LABS: CALCITRIOL VIT D,1, 25 DIHYDRO 35.6 pg/mL (19.9-79.3)
== END 2017-02-13 18:45 | disposition home or self-care (01) | DRG 775 ==
LOC: ER 11:35 → MEDSG2 13:26 → MED 14:18 → TELE 20:55 → MED 02-03 13:02
DX: F10.231 Alcohol dependence with withdrawal delirium (principal); N17.0 Acute kidney failure with tubular necrosis; A41.9 Sepsis, unspecified organism; I50.23 Acute on chronic systolic (congestive) heart failure; J15.6 Pneumonia due to other Gram-negative bacteria; J15.9 Unspecified bacterial pneumonia; K29.71 Gastritis, unspecified, with bleeding; I13.0 Hypertensive heart and chronic kidney disease with heart failure and stage 1 through stage 4 chronic kidney disease, or unspecified chronic kidney disease; I42.6 Alcoholic cardiomyopathy; E46 Unspecified protein-calorie malnutrition; D69.59 Other secondary thrombocytopenia; E83.42 Hypomagnesemia; R13.10 Dysphagia, unspecified; E86.0 Dehydration; Y90.0 Blood alcohol level of less than 20 mg/100 ml; E87.6 Hypokalemia; D75.89 Other specified diseases of blood and blood-forming organs; R00.0 Tachycardia, unspecified; E83.39 Other disorders of phosphorus metabolism; R74.0 Nonspecific elevation of levels of transaminase and lactic acid dehydrogenase [LDH]; E78.5 Hyperlipidemia, unspecified; F32.9 Major depressive disorder, single episode, unspecified; E66.9 Obesity, unspecified; Z68.30 Body mass index [BMI] 30.0-30.9, adult; K70.10 Alcoholic hepatitis without ascites; E83.51 Hypocalcemia; Z95.810 Presence of automatic (implantable) cardiac defibrillator; N18.9 Chronic kidney disease, unspecified; K12.0 Recurrent oral aphthae; D52.9 Folate deficiency anemia, unspecified; F41.9 Anxiety disorder, unspecified; D72.825 Bandemia; D72.829 Elevated white blood cell count, unspecified; E87.1 Hypo-osmolality and hyponatremia; R19.7 Diarrhea, unspecified; B00.1 Herpesviral vesicular dermatitis
CPT/HCPCS: 36415; 70450-TC; 71010-TC; 76700-TC; 80048-TC; 80053-TC; 80061-TC; 80076-TC; 80202-TC; 80305; 81000-TC; 82306; 82570-TC; 82652; 82746; 82962-TC; 83540-TC; 83605-TC; 83735-TC; 83970; 84100-TC; 84300-TC; 84443-TC; 85025-TC; 85610-TC; 87040-TC; 87070-TC; 87081-TC; 87400; 87449; 92611-TC; 93307-TC; 94799-TC; 97001-TC; A4216; A9563; G0480; J0610; J2060; J2270; J2405; J2543; J3370; J3411; J3475; J3480; J3490; J7030; J7042; J7050; J7060; Z7610

== ENCOUNTER 2017-04-12 02:35 | Emergency (ER) | payer MEDICAID ==
[~2017-04-12] VITALS: Ht 175.3 cm; Wt 74.8 kg
[2017-04-12 02:35] VITALS: BP 174/71
[~2017-04-12 02:35] MED LIST changes: +CARV3.122 PO; -CARV6.252 PO
--- NOTE | 2017-04-12 02:35 | NUR ---
TRIAGED PT; APPEARS ANXIOUS. COUSIN STATES "JUST GOT HIM OUT OF REHAB AND HE'S BEEN DRINKING EVERYDAY". PT STATES "I WANNA GO TO A REHAB CENTER". INFORMED PT "WE'RE NOT A REHAB HOSPITAL BUT WE CAN TAKE CARE OF YOUR SX'S AND TREAT YOU". PT AND COUSIN INSIST ON LEAVING TO GO TO EITHER [place] OR [place].
== END 2017-04-12 03:01 | disposition left against medical advice (07) ==
LOC: ER 02:37
DX: Z53.21 Procedure and treatment not carried out due to patient leaving prior to being seen by health care provider (principal)
CPT/HCPCS: A4606; Z7610

== ENCOUNTER 2018-01-03 12:51 | Emergency (ER) | payer MEDICAID, OTHER ==
[~2018-01-03] VITALS: Ht 177.8 cm; Wt 83.9 kg
[~2018-01-03 12:51] MED LIST changes: -TRAZ-147 PO; +TRAZ-214 PO
--- NOTE | 2018-01-03 12:55 | NUR ---
PRESENTS TO ER C/O "MY PACEMAKER IS ALARMING FOR THE LAST 4 DAYS." DENIES CHEST PAIN/SOB. A/OX 4. BREATHING EVEN AND UNLABORED. VITALS STABLE, NAD. SAFETY AND COMFORT MEASURES IN PLACE. AWAITING MD ORDERS.
--- NOTE | 2018-01-03 13:12 | NUR ---
DRUM PLATER AT BEDSIDE.
--- NOTE | 2018-01-03 13:13 | NUR ---
NEW IV STARTED ON LAC, 20G. BLOOD DRAWN AND SENT TO LAB.
[2018-01-03 13:19] LABS: HEMATOCRIT 36 % (39-51); HEMOGLOBIN 12.4 g/dL (13.5-17.5); MEAN CORPUSCULAR HGB CONC 35 g/dl (31.0-36.0); MEAN CORPUSCULAR VOLUME 98 fL (80-96); PLATELET COUNT (AUTO) 126 /CMM (150-450); RDW COEFFICIENT OF VARIATION 14.4 (11.5-15.0); RED BLOOD CELL COUNT(AUTO) 3.68 MIL/uL (4.5-6.0); WHITE BLOOD COUNT (AUTO) 4.2 K/uL (4.3-11.0)
[2018-01-03 13:29] LABS: CALCIUM, SERUM 8.4 mg/dL (8.5-10.1); CARBON DIOXIDE 25 mmol/L (21-32); CHLORIDE 106 mmol/L (98-107); GLUCOSE 90 mg/dL (74-106); POTASSIUM 3.9 mmol/L (3.5-5.1); SODIUM SERUM 138 mmol/L (136-145); UREA NITROGEN, BLOOD 11 mg/dL (7-18)
[2018-01-03 13:35] LABS: INR 1.08 (0.85-1.15)
[2018-01-03 13:40] LABS: TROPONIN I < 0.017 ng/mL (0.00-0.056)
--- NOTE | 2018-01-03 14:34 | NUR ---
CALLED [employer] , SPOKE WITH LINSEY. HE PAGED THE SURVEY MANAGER GLASS TINTER TO COME INTERROGATE THE PATIENTS DEVICE. UNKNOWN ETA AT THIS MOMENT.
[2018-01-03 14:44] LABS: BAND % (MANUAL) 3 % (0.0-5.0); EOSINOPHILS % (MANUAL) 2 % (0-4); LYMPHOCYTES % (MANUAL) 22 % (16-48); MONOCYTES % (MANUAL) 20 % (0-11.0); NEUTROPHILS % (MANUAL) 53 (42-76)
--- NOTE | 2018-01-03 15:00 | NUR ---
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 PATIENT STATING HE WILL GO HOME AND COME BACK IN 2 HOURS WHEN THE TECH ARRIVES. PATIENT SIGNED AMA FORM. LEFT AMBULATORY.
[2018-01-03 15:23] VITALS: BP 124/76
--- NOTE | 2018-01-03 16:29 | NUR ---
CAME BACK PACEMAKER INTERROGATION, PACEMAKER WORKING FINE ,BEEPING SINCE IT'S LOOKING FOR THE MONITOR TO SEND REPORT. PATIENT DOES NOT KNOW WHERE THE MONITOR IS. ADVICED TO F/U WITH TEST LEAD BY [facility]. DR LENIN Sow
== END 2018-01-03 15:00 | disposition left against medical advice (07) ==
LOC: ER 12:52
DX: T82.897A Other specified complication of cardiac prosthetic devices, implants and grafts, initial encounter (principal); F10.10 Alcohol abuse, uncomplicated; I11.0 Hypertensive heart disease with heart failure; I50.9 Heart failure, unspecified
CPT/HCPCS: 36415; 71045-TC; 80048-TC; 84484-TC; 85025-TC; 85730-TC; A4606; Z7610